=== PATIENT | female | born 1995 | race Caucasian/White ===

== ENCOUNTER 2018-08-25 20:55 | Emergency (ER) | payer SELFPAY ==
[2018-08-25 21:16] VITALS: TEMP 98.8
--- NOTE | 2018-08-25 22:17 | CT ---
EXAM DESCRIPTION: Head CLINICAL HISTORY: 23 years Female fall at [employer] concussion COMPARISON: None TECHNIQUE: Images were obtained in axial, sagittal, and coronal planes. This exam was performed according to our departmental dose-optimization program which includes use of Automated Exposure Control, adjustment of the mA and/or kV according to patient size and/or use of iterative reconstruction technique. FINDINGS: Ventricular system appears normal. No abnormal areas of increased or decreased attenuation are seen involving the brain parenchyma. No extra-axial fluid collections noted. No evidence for skull fracture. Symmetric aeration mastoid air cells bilaterally. Unremarkable paranasal sinuses. IMPRESSION: No acute intracranial abnormality. No evidence for hemorrhage, mass lesion, or large acute infarction. Electronically signed by: Kerry Hylton MD 08/25/2018 10:15 PM CDT
--- NOTE | 2018-08-25 22:18 | RAD ---
EXAM DESCRIPTION: Cervical Spine, 2-3 Views CLINICAL HISTORY: 23 years Female fall at work COMPARISON: None TECHNIQUE: Three images of the cervical spine were obtained. FINDINGS: Height of the vertebral bodies is intact. Satisfactory alignment articular facets. Intact odontoid and predental base. Prevertebral soft tissues appear normal. Artifact left upper hemithorax. IMPRESSION: No acute fracture or subluxation seen. Electronically signed by: Kerry Hylton MD 08/25/2018 10:16 PM CDT
--- NOTE | 2018-08-25 23:12 | RAD ---
EXAM: Three view(s) of the left shoulder. INDICATION: Pain. COMPARISON: None. FINDINGS: No acute fracture or dislocation. No large soft tissue swelling. IMPRESSION: 1. No acute fracture. Electronically signed by: William Soria MD 08/25/2018 11:10 PM CDT Workstation: [id number]
--- NOTE | 2018-08-25 23:15 | ED.PDOC ---
History of Present Illness - General Chief Complaint: Trauma Stated Complaint: head and left shoulder pain Time Seen by Provider: 08/25/18 21:44 Source: patient Exam Limitations: no limitations - History of Present Illness Initial Comments: the patient is a 23-year-old female presenting to the emergency room secondary to having apparently tripped and fallen at work landing on her shoulder and hitting her head. She had some difficulty with getting up. It did days her. She got up and smoked a cigarette she threw up. She is feeling a little dizzy and fatigued at this point. No other obvious injury. Timing/Duration: 1/2 hour Severity: moderate Improving Factors: nothing Worsening Factors: nothing Associated Symptoms: headaches Allergies/Adverse Reactions: Allergies Amoxicillin Allergy (Verified 06/08/18 21:09) Penicillins Allergy (Verified 06/08/18 21:08) Home Medications: Ambulatory Orders Amitriptyline HCl [Amitriptyline Hydrochlori] 10 mg PO DAILY 06/08/18 Review of Systems - Review of Systems Constitutional: States: malaise EENTM: States: no symptoms reported Respiratory: States: no symptoms reported Cardiology: States: no symptoms reported Gastrointestinal/Abdominal: States: nausea Genitourinary: States: no symptoms reported Musculoskeletal: States: see HPI Skin: States: no symptoms reported Neurological: States: headache Endocrine: States: no symptoms reported All other Systems: No Change from Baseline Past Medical History (General) - Patient Medical History Hx Seizures: No Hx Stroke: No Hx Dementia: No Hx Asthma: No Hx of COPD: No Hx Cardiac Disorders: No Hx Congestive Heart Failure: No Hx Pacemaker: No Hx Hypertension: No Hx Thyroid Disease: No Hx Diabetes: No Hx Gastroesophageal Reflux: No Hx Renal Disease: No Hx of HIV: No Hx MRSA: No - Vaccination History Hx Tetanus, Diphtheria Vaccination: No Hx Influenza Vaccination: No Hx Pneumococcal Vaccination: No - Social History Hx Tobacco Use: Yes Hx Alcohol Use: No - Female History Patient is a Female of Child Bearing Age (10 -59 yrs old): Yes Patient : No - Triage Comment ED Triage Comment: Pain to let shoulder and left side of head Family Medical History - Family History Mother Family History: Unknown Physical Exam - Physical Exam General Appearance: Alert, No apparent distress Eye Exam: bilateral normal Ears, Nose, Throat: hearing grossly normal, normal ENT inspection Neck: full range of motion, supple, normal inspection Respiratory: lungs clear, normal breath sounds, no respiratory distress, no accessory muscle use Cardiovascular/Chest: normal peripheral pulses, regular rate, rhythm, no edema Peripheral Pulses: radial,right: 2+, radial,left: 2+, dorsalis pedis,right: 2+, dorsalis pedis,left: 2+ Gastrointestinal/Abdominal: non tender, soft Rectal Exam: deferred Back Exam: no CVA tenderness, no vertebral tenderness Extremity: normal range of motion - point of shoulder is somewhat uncomfortable with palpation. 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 X-ray of the cervical spine and of the shoulder showed no evidence of any fracture, subluxation or dislocation. Progress - Progress Progress: 08/25/18 23:16 the patient's a 23-year-old female presenting to the emergency room after having sustained an injury at work that appears to be a mild concussion and a mild shoulder strain. The patient needs to keep well-hydrated. She needs to avoid overheating. She needs to follow back up with her primary care doctor in a few days. Motrin can be used for headache. ER warnings were given. Departure - Departure Clinical Impression: Strain of left shoulder Qualifiers: Encounter type: initial encounter Qualified Code(s): S46.912A - Strain of unspecified muscle, fascia and tendon at shoulder and upper arm level, left arm, initial encounter Concussion Qualifiers: Encounter type: initial encounter Loss of consciousness presence/duration: without LOC Qualified Code(s): S06.0X0A - Concussion without loss of consciousness, initial encounter Disposition: Discharge to Home or Self Care Condition: Fair Departure Forms: ED Discharge - Pt. Copy, Patient Portal Self Enrollment Instructions: DI for Trauma, Concussion, Adult (DC) Diet: regular diet Activity: increase activity as tolerated Home Medications: Ambulatory Orders Amitriptyline HCl [Amitriptyline Hydrochlori] 10 mg PO DAILY 06/08/18 Additional Instructions: the patient's a 23-year-old female presenting to the emergency room after having sustained an injury at work that appears to be a mild concussion and a mild shoulder strain. The patient needs to keep well-hydrated. She needs to avoid overheating. She needs to follow back up with her primary care doctor in a few days. Motrin can be used for headache. ER warnings were given.
[2018-08-25] MEDS ORDERED: IBUPROFEN 200 MG TAB PO ONE (23:18)
[2018-08-25 23:37] VITALS: BP 125/80; O2SAT 99
== END 2018-08-25 23:41 | disposition home or self-care (01) ==
LOC: ER 20:55
DX: S06.0X0A Concussion without loss of consciousness, initial encounter (principal); S46.912A Strain of unspecified muscle, fascia and tendon at shoulder and upper arm level, left arm, initial encounter; W01.0XXA Fall on same level from slipping, tripping and stumbling without subsequent striking against object, initial encounter; Y99.0 Civilian activity done for income or pay; Y92.69 Other specified industrial and construction area as the place of occurrence of the external cause; Z87.891 Personal history of nicotine dependence; Z88.0 Allergy status to penicillin

== ENCOUNTER 2018-09-24 11:30 | Emergency (ER) | payer SELFPAY ==
[2018-09-24 12:40] VITALS: O2SAT 99
--- NOTE | 2018-09-24 16:32 | ED.PDOC ---
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 Stated Complaint: Vaginal discharge Time Seen by Provider: 09/24/18 13:16 Source: patient Exam Limitations: no limitations - History of Present Illness Quality: moderate Onset Location: suprapubic Radiation: none Activites at Onset: none Prior abdominal problems: none Sexual intercourse history: single partner - Improving Factors: nothing Worsening Factors: nothing Associated Symptoms: denies symptoms Allergies/Adverse Reactions: Allergies Amoxicillin Allergy (Verified 06/08/18 21:09) Penicillins Allergy (Verified 06/08/18 21:08) Home Medications: Ambulatory Orders Amitriptyline HCl [Amitriptyline Hydrochlori] 10 mg PO DAILY 06/08/18 Review of Systems - Review of Systems Constitutional: States: no symptoms reported EENTM: States: no symptoms reported Respiratory: States: no symptoms reported Cardiology: States: no symptoms reported Gastrointestinal/Abdominal: Denies: abdominal pain, nausea Genitourinary: States: discharge, dysuria, other - HESITANCY. Denies: frequency, hematuria Musculoskeletal: States: no symptoms reported Skin: States: no symptoms reported Neurological: States: no symptoms reported Endocrine: States: no symptoms reported Hematologic/Lymphatic: States: no symptoms reported All other Systems: Reviewed and Negative Past Medical History (General) - Patient Medical History Hx Seizures: No Hx Stroke: No Hx Dementia: No Hx Asthma: No Hx of COPD: No Hx Cardiac Disorders: No Hx Congestive Heart Failure: No Hx Pacemaker: No Hx Hypertension: No Hx Thyroid Disease: No Hx Diabetes: No Hx Gastroesophageal Reflux: No Hx Renal Disease: No Hx of HIV: No Hx MRSA: No Surgical History: other - Vaccination History Hx Tetanus, Diphtheria Vaccination: No Hx Influenza Vaccination: No Hx Pneumococcal Vaccination: No - Social History Hx Tobacco Use: Yes Hx Alcohol Use: Yes - Social - Female History Patient is a Female of Child Bearing Age (10 -59 yrs old): Yes Patient : No Family Medical History - Family History Mother Family History: No Known Living Status: Still Living Physical Exam - Physical Exam General Appearance: Alert, No apparent distress Eyes, Ears, Nose, Throat Exam: PERRL/EOMI, normal ENT inspection Neck: non-tender, full range of motion Cardiovascular/Respiratory: regular rate, rhythm, no M/R/G Gastrointestinal/Abdominal: normal bowel sounds, non tender, soft, no organomegaly, no pulsatile mass Pelvic Exam: external exam normal, speculum exam normal - CLEAR TO WHITE, FILMY DC. , no masses, tender w/ cervical motion - WHEN PRESSING TOWARD RIGHT. 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 SEND OUT LABS G/C AND CHLAMYDIA. I SPOKE WITH PT. HER PREFERENCE IS FOR THE ER TO CALL HER WHEN LABS RETURN IN 1-2 DAYS, THEN TX WITH ABX IF INDICATED. Departure - Departure Clinical Impression: Vaginal discharge, Vaginal pain Disposition: Discharge to Home or Self Care Condition: Good Departure Forms: ED Discharge - Pt. Copy, Patient Portal Self Enrollment Instructions: DI for Vaginal Discharge Diet: resume usual diet Activity: increase activity as tolerated Home Medications: Ambulatory Orders Amitriptyline HCl [Amitriptyline Hydrochlori] 10 mg PO DAILY 06/08/18 Additional Instructions: The ER will call you with the lab results and then treat accordingly.
[2018-09-24 16:48] VITALS: BP 112/76; TEMP 98
== END 2018-09-24 16:42 | disposition home or self-care (01) ==
LOC: ER 11:30
DX: N89.8 Other specified noninflammatory disorders of vagina (principal); R10.2 Pelvic and perineal pain; R30.0 Dysuria; R39.11 Hesitancy of micturition; Z87.891 Personal history of nicotine dependence; Z88.0 Allergy status to penicillin

== ENCOUNTER 2019-03-12 18:42 | Emergency (ER) | payer SELFPAY ==
--- NOTE | 2019-03-12 19:19 | ED.PDOC ---
History of Present Illness - General Time Seen by Provider: 03/12/19 18:59 Source: patient, RN notes reviewed, Vital Signs reviewed Exam Limitations: no limitations - History of Present Illness Initial Comments: Pt is a 23 yo femalee with no significant PMH who presents to ED for chest tightness onset at 1630 today. Has felt SOB, nauseated and anxious. Reports palpitations and describes as her heart is beating out of her chest. Denies fever or cough. Denies previous heart problems. Allergies/Adverse Reactions: Allergies Amoxicillin Allergy (Verified 06/08/18 21:09) Penicillins Allergy (Verified 06/08/18 21:08) Home Medications: Ambulatory Orders Amitriptyline HCl [Amitriptyline Hydrochlori] 10 mg PO DAILY 06/08/18 Review of Systems - Review of Systems Constitutional: Denies: chills, fever, weakness EENTM: Denies: ear pain, nose congestion, throat pain Respiratory: States: short of breath. Denies: cough, wheezing Cardiology: States: chest pain, palpitations. Denies: edema, syncope Gastrointestinal/Abdominal: States: nausea. Denies: abdominal pain, vomiting Genitourinary: States: no symptoms reported Musculoskeletal: Denies: back pain, neck pain Skin: States: no symptoms reported Neurological: States: anxiety All other Systems: Reviewed and Negative Past Medical History (General) - Patient Medical History Hx Seizures: No Hx Stroke: No Hx Dementia: No Hx Asthma: No Hx of COPD: No Hx Cardiac Disorders: No Hx Congestive Heart Failure: No Hx Pacemaker: No Hx Hypertension: No Hx Thyroid Disease: No Hx Diabetes: No Hx Gastroesophageal Reflux: No Hx Renal Disease: No Hx of HIV: No Hx MRSA: No - Vaccination History Hx Tetanus, Diphtheria Vaccination: No Hx Influenza Vaccination: No Hx Pneumococcal Vaccination: No - Social History Hx Tobacco Use: Yes Hx Alcohol Use: Yes - Social - Female History Patient : No Family Medical History - Family History Mother Family History: No Known Living Status: Still Living Physical Exam - Physical Exam General Appearance: Alert, Other - Anxious appearing Ears, Nose, Throat: normal pharynx Neck: non-tender, full range of motion, supple Respiratory: chest non-tender, lungs clear, normal breath sounds, no respiratory distress, no accessory muscle use Cardiovascular/Chest: regular rate, rhythm, no edema, no murmur Gastrointestinal/Abdominal: non tender, soft, no pulsatile mass Back Exam: no CVA tenderness, no vertebral tenderness Extremity: normal range of motion, non-tender, normal inspection, no pedal edema 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 EKG, CXR, troponin and D dimer negative. Symptoms resolved with Xanax in ED and feels improved. Likely due to anxiety and pt feels comfortable going home and will f/u with her PCP in 1-2 days for continued evaluation. SRP given. - Results/Orders Results/Orders: CHEST XRAY IMPRESSION: NO SIGNIFICANT RADIOGRAPHIC ABNORMALITIES IN THE CHEST. 03/12/19 19:16 IV:Start .ONCE 03/12/19 19:30 EKG .ONCE Laboratory Results - last 24 hr 03/12/19 03/12/19 03/12/19 19:30 19:32 19:32 WBC 8.0 RBC 4.67 Hgb 10.1 L Hct 32.4 L MCV 69.3 L MCH 21.7 L MCHC 31.3 L RDW 18.5 H Plt Count 283 MPV 9.2 Absolute Neuts (auto) 4.30 Absolute Lymphs (auto) 2.80 Absolute Monos (auto) 0.50 Absolute Eos (auto) 0.40 Absolute Basos (auto) 0.10 Neutrophils % 53.5 Lymphocytes % 34.5 Monocytes % 6.1 Eosinophils % 4.6 Basophils % 1.3 Normal RBC Morphology Stain quality accept D-Dimer, Quantitative Sodium 137 Potassium 3.5 L Chloride 102 Carbon Dioxide 26 Anion Gap 12.5 BUN 8 Creatinine 0.55 L BUN/Creatinine Ratio 14.5 Random Glucose 88 Serum Osmolality 271.6 L Calcium 9.5 Total Bilirubin 0.3 AST 23 ALT 20 Alkaline Phosphatase 69 Troponin I B-Natriuretic Peptide < 5.0 Serum Total Protein 7.9 Albumin 4.4 Globulin 3.5 Albumin/Globulin Ratio 1.3 Lipase 36 Urine HCG, Qual Negative 03/12/19 03/12/19 19:32 19:32 WBC RBC Hgb Hct MCV MCH MCHC RDW Plt Count MPV Absolute Neuts (auto) Absolute Lymphs (auto) Absolute Monos (auto) Absolute Eos (auto) Absolute Basos (auto) Neutrophils % Lymphocytes % Monocytes % Eosinophils % Basophils % Normal RBC Morphology D-Dimer, Quantitative 0.35 Sodium Potassium Chloride Carbon Dioxide Anion Gap BUN Creatinine BUN/Creatinine Ratio Random Glucose Serum Osmolality Calcium Total Bilirubin AST ALT Alkaline Phosphatase Troponin I < 0.02 B-Natriuretic Peptide Serum Total Protein Albumin Globulin Albumin/Globulin Ratio Lipase Urine HCG, Qual Departure - Departure Clinical Impression: Atypical chest pain, Palpitations Disposition: Discharge to Home or Self Care Condition: Good Instructions: DI for Chest Pain Diet: resume usual diet Activity: increase activity as tolerated Home Medications: Ambulatory Orders Amitriptyline HCl [Amitriptyline Hydrochlori] 10 mg PO DAILY 06/08/18 Comments: Follow up with your PCP in 1-2 days for recheck.
[2019-03-12 19:28] VITALS: TEMP 98.3; O2SAT 100
[2019-03-12] MEDS ORDERED: ALPRAZolam 0.5 MG TAB ONE (19:47)
[2019-03-12] MEDS: ALPRAZolam 0.25 MG TAB PO ONE (19:47)
--- NOTE | 2019-03-12 19:55 | RAD ---
EXAM DESCRIPTION: Chest,1 View CLINICAL HISTORY: 23 years Female chest pain COMPARISON: None TECHNIQUE: Portable AP view of the chest is obtained. FINDINGS IN THE CHEST: Heart: Allowing for magnification factors related to AP portable technique and body habitus, the heart is normal in size and configuration. Vasculature: [] There is no evidence of aortic aneurysm or acute findings. The pulmonary vascularity is normal. Mediastinum: No evidence of mass or adenopathy. Lungs: There is no focal consolidation in the lungs. Pleura: There are no pleural effusions. There are no pneumothoraces. Osseous structures: No evidence of acute fracture, osteolytic lesions or osteoblastic lesions. Tubes and catheters: None Chest wall: Unremarkable. Visualized Abdomen: Unremarkable. IMPRESSION: NO SIGNIFICANT RADIOGRAPHIC ABNORMALITIES IN THE CHEST. Remainder of findings as described above. Electronically signed by: Lisy Uribe MD 03/12/2019 7:53 PM MINUTE CLERK
[2019-03-12 20:48] VITALS: BP 128/71
== END 2019-03-12 20:52 | disposition home or self-care (01) ==
LOC: ER 18:42
DX: R07.89 Other chest pain (principal); R00.2 Palpitations; R06.02 Shortness of breath; R11.0 Nausea; F41.9 Anxiety disorder, unspecified; Z88.0 Allergy status to penicillin

== ENCOUNTER → 2019-04-01 | Outpatient (CLI) | payer OTHER | LOC: LAB.O 13:21 | PROVIDERS: ATTEND Family Medicine | DX: D64.9 Anemia, unspecified (principal) ==

== ENCOUNTER 2019-08-10 14:54 | Emergency (ER) | payer SELFPAY ==
[2019-08-10] MEDS ORDERED: SODIUM CHLORIDE 0.9% (FLUSH) 10 ML SYG IV PRN (15:08)
[2019-08-10] MEDS ORDERED: ONDANSETRON INJ 4 MG/2 ML VIAL IV ONE (15:08)
[2019-08-10] MEDS ORDERED: DICYCLOMINE HCL INJ 20 MG/2 ML AMP IM ONE (15:09)
--- NOTE | 2019-08-10 17:33 | ED.PDOC ---
History of Present Illness - General Chief Complaint: GI Problem Stated Complaint: Lower abd pain, N/V Time Seen by Provider: 08/10/19 15:08 Information Source: patient, RN notes reviewed, Vital Signs reviewed Exam Limitations: no limitations - History of Present Illness Initial Comments: Patient is a 24-year-old white female who presents with complaints of suprapubic abdominal pain starting 1 hour prior to arrival. Acute onset, stabbing in nature, severe intensity, nonradiating. Nothing makes it better or worse. It is constant. Abdominal Pain Onset Location: suprapubic Pain Radiation: no radiation Quality: severe, stabbing Timing/Duration: 1 hour Improving Factors: nothing Worsening Factors: nothing Associated Symptoms: nausea/vomiting - Nausea only Review of Systems - Review of Systems Constitutional: States: no symptoms reported, see HPI EENTM: States: no symptoms reported, see HPI Respiratory: States: no symptoms reported Cardiology: States: no symptoms reported Gastrointestinal/Abdominal: States: see HPI, abdominal pain, nausea. Denies: constipation, diarrhea, vomiting Genitourinary: Denies: discharge, dysuria, frequency, pain Musculoskeletal: States: no symptoms reported. 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 Hx Congestive Heart Failure: No Hx Pacemaker: No Hx Hypertension: No Hx Thyroid Disease: No Hx Diabetes: No Hx Gastroesophageal Reflux: No Hx Renal Disease: No Hx Cancer: No Hx of HIV: No Hx Hepatitis C: No Hx MRSA: No Surgical History: other - Vaccination History Hx Tetanus, Diphtheria Vaccination: No Hx Influenza Vaccination: No Hx Pneumococcal Vaccination: No - Social History Hx Tobacco Use: Yes Hx Alcohol Use: No Hx Substance Use: No Hx Substance Use Treatment: No Hx Depression: No - Female History Patient is a Female of Child Bearing Age (10 -59 yrs old): Yes Patient : No - Denies Family Medical History - Family History Mother Family History: No Known Living Status: Still Living Physical Exam - Physical Exam General Appearance: Alert, Anxious, Obvious distress, Well Developed, Well Groomed, Well Hydrated, Well Nourished Eyes, Ears, Nose, Throat Exam: PERRL/EOMI, normal ENT inspection, pharynx normal - Except for dry mucous membrane Neck: non-tender, full range of motion, supple Respiratory: chest non-tender, lungs clear, normal breath sounds, no respiratory distress, no accessory muscle use Cardiovascular/Chest: normal peripheral pulses, no edema, no gallop, no murmur, tachycardia Gastrointestinal/Abdominal: normal bowel sounds, soft, no organomegaly, no pulsatile mass, tenderness - Suprapubically Pelvic Exam: other - Deferred at patient request Rectal Exam: deferred Back Exam: normal inspection, no CVA tenderness, no vertebral tenderness Extremity: normal range of motion, non-tender, normal inspection 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 08/10/19 17:48 Patient's pain went from a 10/10 to a 2/10 after IM Bentyl. Patient is feeling markedly better. Plan on discharge home at this point in time. Patient did query me regarding possible ovarian cyst. We did discuss this and I explained I do not have ultrasound available on the weekends but that she could follow-up with her PCP in the morning and they could order an outpatient ultrasound. She voiced understanding and agreement with the plan of care. Jeronimo Florez M.D. #[id number] - Results/Orders Results/Orders: Laboratory Tests 08/10/19 08/10/19 08/10/19 15:40 15:40 15:40 WBC 7.6 RBC 4.58 Hgb 9.8 L Hct 31.8 L MCV 69.3 L MCH 21.5 L MCHC 31.0 L RDW 17.7 H Plt Count 253 MPV 8.4 Absolute Neuts (auto) 4.10 Absolute Lymphs (auto) 2.60 Absolute Monos (auto) 0.50 Absolute Eos (auto) 0.40 Absolute Basos (auto) 0.10 Neutrophils % 54.2 Lymphocytes % 33.6 Monocytes % 5.9 Eosinophils % 5.0 Basophils % 1.3 RBC Morphology 2+poikilocytosis Sodium 138 Potassium 3.2 L Chloride 108 Carbon Dioxide 24 Anion Gap 9.2 L BUN 9 Creatinine 0.67 BUN/Creatinine Ratio 13.4 Random Glucose 76 Serum Osmolality 273.1 L Calcium 9.4 Total Bilirubin 0.3 Direct Bilirubin < 0.1 Indirect Bilirubin 0.2 AST 22 ALT 19 Alkaline Phosphatase 58 Serum Total Protein 7.7 Albumin 4.1 Lipase 33 Serum HCG, Qual Negative Urine Color Urine Appearance Urine pH Ur Specific Umbarger Urine Protein Urine Glucose (UA) Urine Ketones Urine Blood Urine Nitrite Urine Bilirubin Urine Urobilinogen Ur Leukocyte Esterase Urine RBC Urine WBC Ur Epithelial Cells Urine Bacteria 08/10/19 15:47 WBC RBC Hgb Hct MCV MCH MCHC RDW Plt Count MPV Absolute Neuts (auto) Absolute Lymphs (auto) Absolute Monos (auto) Absolute Eos (auto) Absolute Basos (auto) Neutrophils % Lymphocytes % Monocytes % Eosinophils % Basophils % RBC Morphology Sodium Potassium Chloride Carbon Dioxide Anion Gap BUN Creatinine BUN/Creatinine Ratio Random Glucose Serum Osmolality Calcium Total Bilirubin Direct Bilirubin Indirect Bilirubin AST ALT Alkaline Phosphatase Serum Total Protein Albumin Lipase Serum HCG, Qual Urine Color Yellow Urine Appearance Clear Urine pH 7.0 Ur Specific Umbarger 1.020 Urine Protein Negative Urine Glucose (UA) Negative Urine Ketones Negative Urine Blood Negative Urine Nitrite Negative Urine Bilirubin Negative Urine Urobilinogen 0.2 Ur Leukocyte Esterase Negative Urine RBC 0 Urine WBC 0 Ur Epithelial Cells 0 Urine Bacteria 0 Vital Signs 08/10/19 08/10/19 15:04 15:26 Temperature 100 F H Pulse Rate [ 111 H 111 H Pulse ox] Respiratory 20 20 Rate Blood Pressure 145/78 [L brachial] O2 Sat by Pulse 100 Oximetry Departure - Departure Clinical Impression: Painful bladder spasm Abdominal pain Qualifiers: Abdominal location: lower abdomen, unspecified Qualified Code(s): R10.30 - Lower abdominal pain, unspecified Time of Disposition: 17:50 Disposition: Discharge to Home or Self Care Condition: Good Departure Forms: ED Discharge - Pt. Copy, Patient Portal Self Enrollment Instructions: DI for Abdominal Pain-Adult, Bladder Spasms (DC) Diet: resume usual diet Activity: increase activity as tolerated Prescriptions: Dicyclomine HCl [Bentyl] 20 mg PO Q6H #12 tab Home Medications: Ambulatory Orders Amitriptyline HCl [Amitriptyline Hydrochlori] 10 mg PO DAILY 06/08/18 Dicyclomine HCl [Bentyl] 20 mg PO Q6H #12 tab 08/10/19
[2019-08-10 18:22] VITALS: BP 107/62; TEMP 98.3; O2SAT 94
== END 2019-08-10 18:00 | disposition home or self-care (01) ==
LOC: ER 14:54
DX: N32.89 Other specified disorders of bladder (principal); R10.30 Lower abdominal pain, unspecified; R11.2 Nausea with vomiting, unspecified; F17.200 Nicotine dependence, unspecified, uncomplicated
CPT/HCPCS: 36415; 80048; 80076; 81001; 83690; 84703; 85025; A4216; J0500; J2405

== ENCOUNTER 2019-08-29 16:13 | Emergency (ER) | payer SELFPAY ==
[2019-08-29] MEDS ORDERED: SULFA/TRIMETH 800/160 (DS) TAB 1 EA TAB PO ONE (16:28)
--- NOTE | 2019-08-29 16:31 | ED.PDOC ---
History of Present Illness - General Chief Complaint: Bite: Animal/Insect/Human Stated Complaint: Spider bite L index finger Time Seen by Provider: 08/29/19 16:28 Source: patient Exam Limitations: no limitations - History of Present Illness Initial Comments: The patient is a 24-year-old female presented emergency room secondary to a small area of cellulitis over the first interphalangeal joint of the index finger of the left hand. It is been present for about 10 days. There is mild surrounding erythema. No evidence of extension into the joint. She thinks it may be from a spider bite but is not sure. No fever. No other areas of concern. No drainage. Timing/Duration: other - 10 days Severity: mild Improving Factors: nothing Worsening Factors: nothing Associated Symptoms: denies symptoms Allergies/Adverse Reactions: Allergies Amoxicillin Allergy (Verified 08/10/19 15:33) Coconut Fragrance Allergy (Verified 08/10/19 15:33) Penicillins Allergy (Verified 08/10/19 15:33) Home Medications: Ambulatory Orders Amitriptyline HCl [Amitriptyline Hydrochlori] 10 mg PO DAILY 06/08/18 Dicyclomine HCl [Bentyl] 20 mg PO Q6H #12 tab 08/10/19 Sulfa/Trimeth 800/160 (Ds) Tab [Bactrim DS Tab] 1 ea PO BID #10 tab 08/29/19 Review of Systems - Review of Systems Constitutional: States: no symptoms reported EENTM: States: no symptoms reported Respiratory: States: no symptoms reported Cardiology: States: no symptoms reported Gastrointestinal/Abdominal: States: no symptoms reported Genitourinary: States: no symptoms reported Musculoskeletal: States: no symptoms reported Skin: States: see HPI Neurological: States: no symptoms reported Endocrine: States: no symptoms reported All other Systems: No Change from Baseline Past Medical History (General) - Patient Medical History Hx Seizures: No Hx Stroke: No Hx Dementia: No Hx Asthma: No Hx of COPD: No 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 Hx Congestive Heart Failure: No Hx Pacemaker: No Hx Hypertension: No Hx Thyroid Disease: No Hx Diabetes: No Hx Gastroesophageal Reflux: No Hx Renal Disease: No Hx Cancer: No Hx of HIV: No Hx Hepatitis C: No Hx MRSA: No - Vaccination History Hx Tetanus, Diphtheria Vaccination: No Hx Influenza Vaccination: No Hx Pneumococcal Vaccination: No - Social History Hx Tobacco Use: Yes Hx Alcohol Use: No Hx Substance Use: No Hx Substance Use Treatment: No Hx Depression: No - Female History Patient : No - Denies Family Medical History - Family History Mother Family History: No Known Living Status: Still Living Physical Exam - Physical Exam General Appearance: Alert, Comfortable, No apparent distress Eye Exam: bilateral normal Ears, Nose, Throat: hearing grossly normal Neck: full range of motion Respiratory: no respiratory distress, no accessory muscle use Cardiovascular/Chest: normal peripheral pulses, no edema Peripheral Pulses: radial,right: 2+, radial,left: 2+ Rectal Exam: deferred Extremity: normal range of motion, no pedal edema, normal capillary refill, other - Normal range of motion of the finger 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 No drainage. No abscess. Progress - Progress Progress: 08/29/19 16:30 The patient is a 24-year-old female with a small area of cellulitis to the palmar aspect of the first interphalangeal joint of the second digit of the left hand. The patient is going to be started on Bactrim twice daily for 5 days. She is to use both Neosporin and a Band-Aid to keep the area covered and moist. ER warnings are given for any worsening. First dose of Bactrim was given here. hernan burks [id number] Departure - Departure Clinical Impression: Cellulitis Qualifiers: Site of cellulitis: extremity Site of cellulitis of extremity: finger Laterality: left Qualified Code(s): L03.012 - Cellulitis of left finger Disposition: Discharge to Home or Self Care Condition: Fair Departure Forms: ED Discharge - Pt. Copy, Patient Portal Self Enrollment Instructions: Cellulitis (Skin Infection), Adult (DC) Diet: regular diet Activity: increase activity as tolerated Prescriptions: Sulfa/Trimeth 800/160 (Ds) Tab [Bactrim DS Tab] 1 ea PO BID #10 tab Home Medications: Ambulatory Orders Amitriptyline HCl [Amitriptyline Hydrochlori] 10 mg PO DAILY 06/08/18 Dicyclomine HCl [Bentyl] 20 mg PO Q6H #12 tab 08/10/19 Sulfa/Trimeth 800/160 (Ds) Tab [Bactrim DS Tab] 1 ea PO BID #10 tab 08/29/19 Additional Instructions: The patient is a 24-year-old female with a small area of cellulitis to the palmar aspect of the first interphalangeal joint of the second digit of the left hand. The patient is going to be started on Bactrim twice daily for 5 days. She is to use both Neosporin and a Band-Aid to keep the area covered and moist. ER warnings are given for any worsening. First dose of Bactrim was given here.
[2019-08-29 16:34] VITALS: BP 133/86; TEMP 98.4; O2SAT 100
== END 2019-08-29 16:40 | disposition home or self-care (01) ==
LOC: ER 16:13
DX: L03.012 Cellulitis of left finger (principal); F17.200 Nicotine dependence, unspecified, uncomplicated

== ENCOUNTER 2019-08-30 18:20 | Emergency (ER) | payer SELFPAY ==
--- NOTE | 2019-08-30 18:37 | ED.PDOC ---
History of Present Illness - General Time Seen by Provider: 08/30/19 18:33 Source: patient Additional Information: Is a 24-year-old female, patient works at a gas [employer] patient presents to the ER because of not feeling well, was seen here yesterday seems like she probably had a what she thought was a spider bite on her finger, she was given antibiotics but since last night she started having some chills this is a general feel warm no fever and very weak. Patient denies coughing denies nasal secretions denies abdominal pain denies dysuria no diarrhea Patient is a smoker - History of Present Illness Timing/Duration: other - last night Improving Factors: nothing Worsening Factors: nothing Associated Symptoms: denies symptoms Allergies/Adverse Reactions: Allergies Coconut Fragrance Allergy (Verified 08/10/19 15:33) Iron Allergy (Verified 08/29/19 16:34) Amoxicillin Adverse Reaction (Verified 08/29/19 16:34) Penicillins Adverse Reaction (Verified 08/29/19 16:34) Home Medications: Ambulatory Orders Amitriptyline HCl [Amitriptyline Hydrochlori] 10 mg PO DAILY 06/08/18 Dicyclomine HCl [Bentyl] 20 mg PO Q6H #12 tab 08/10/19 Sulfa/Trimeth 800/160 (Ds) Tab [Bactrim DS Tab] 1 ea PO BID #10 tab 08/29/19 Review of Systems - Review of Systems Constitutional: States: chills, malaise EENTM: States: no symptoms reported Respiratory: States: no symptoms reported Cardiology: States: no symptoms reported Gastrointestinal/Abdominal: States: no symptoms reported Genitourinary: States: no symptoms reported Musculoskeletal: States: no symptoms reported Skin: States: no symptoms reported Neurological: States: no symptoms reported Endocrine: States: no symptoms reported Hematologic/Lymphatic: States: no symptoms reported All other Systems: Reviewed and Negative Past Medical History (General) - Patient Medical History Hx Seizures: No Hx Stroke: No Hx Dementia: No Hx Asthma: No Hx of COPD: No 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 Hx Congestive Heart Failure: No Hx Pacemaker: No Hx Hypertension: No Hx Thyroid Disease: No Hx Diabetes: No Hx Gastroesophageal Reflux: No Hx Renal Disease: No Hx Cancer: No Hx of HIV: No Hx Hepatitis C: No Hx MRSA: No - Vaccination History Hx Tetanus, Diphtheria Vaccination: No Hx Influenza Vaccination: No Hx Pneumococcal Vaccination: No - Social History Hx Tobacco Use: Yes Hx Alcohol Use: No Hx Substance Use: No Hx Substance Use Treatment: No Hx Depression: No - Female History Patient : No - Denies Family Medical History - Family History Mother Family History: No Known Living Status: Still Living Hx Family Diabetes: Yes Father Living Status: Still Living Hx Family Diabetes: Yes Physical Exam - Physical Exam General Appearance: Alert, Well Developed, Well Groomed, Well Hydrated, Well Nourished Eye Exam: bilateral normal Ears, Nose, Throat: hearing grossly normal, normal ENT inspection, normal pharynx Neck: non-tender, full range of motion, supple, normal inspection Cardiovascular/Chest: normal peripheral pulses, regular rate, rhythm, no edema, no gallop, no JVD Gastrointestinal/Abdominal: normal bowel sounds, non tender, soft, no organomegaly Rectal Exam: normal exam Back Exam: normal inspection, no CVA tenderness, no vertebral tenderness Extremity: normal range of motion, non-tender, normal inspection, no pedal edema, no calf tenderness 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 Patient return home with a note for work I will order the covid test, told the patient to stay home the test will not be available today and lots of fluids lots of rest and Tylenol 3 for achiness and malaise Departure - Departure Clinical Impression: Malaise and fatigue Disposition: Discharge to Home or Self Care Condition: Good Diet: full liquid diet Home Medications: Ambulatory Orders Amitriptyline HCl [Amitriptyline Hydrochlori] 10 mg PO DAILY 06/08/18 Dicyclomine HCl [Bentyl] 20 mg PO Q6H #12 tab 08/10/19 Sulfa/Trimeth 800/160 (Ds) Tab [Bactrim DS Tab] 1 ea PO BID #10 tab 08/29/19
[2019-08-30 18:41] VITALS: BP 125/68; TEMP 97.8; O2SAT 99
== END 2019-08-30 18:53 | disposition home or self-care (01) ==
LOC: ER 18:20
DX: R53.81 Other malaise (principal); R53.83 Other fatigue

== ENCOUNTER 2019-09-06 12:39 | Emergency (ER) | payer SELFPAY ==
[2019-09-06] MEDS ORDERED: SODIUM CHLORIDE 0.9% 1000ML 1,000 ML IVS ONE (12:53)
--- NOTE | 2019-09-06 12:56 | ED.PDOC ---
History of Present Illness - General Time Seen by Provider: 09/06/19 12:44 Source: patient, RN notes reviewed, Vital Signs reviewed, old records Exam Limitations: no limitations - History of Present Illness Initial Comments: Patient is a 24-year-old female with no past medical history who presents the ED with 8-day history of cough, shortness of breath, body aches and feeling fatigued. She was seen in ED 1 week ago and tested for COVID-19, but she has not gotten the results. States over the past week her symptoms have not improved so she returned to ED today. Had one episode of diarrhea this morning. She denies fever, nausea, vomiting or abdominal pain or dysuria. Allergies/Adverse Reactions: Allergies Coconut Fragrance Allergy (Verified 08/30/19 18:37) Iron Allergy (Verified 08/30/19 18:37) Amoxicillin Adverse Reaction (Verified 08/30/19 18:37) Penicillins Adverse Reaction (Verified 08/30/19 18:37) Home Medications: Ambulatory Orders Amitriptyline HCl [Amitriptyline Hydrochlori] 10 mg PO DAILY 06/08/18 Dicyclomine HCl [Bentyl] 20 mg PO Q6H #12 tab 08/10/19 Sulfa/Trimeth 800/160 (Ds) Tab [Bactrim DS Tab] 1 ea PO BID #10 tab 08/29/19 Acetaminophen W/ Codeine [Tylenol W/ CODEINE #3] 1 ea PO Q6HR #20 08/30/19 Review of Systems - Review of Systems Constitutional: States: malaise. Denies: chills, fever EENTM: States: nose congestion. Denies: blurred vision, throat swelling Respiratory: States: cough, short of breath. Denies: wheezing Cardiology: Denies: chest pain, edema, syncope Gastrointestinal/Abdominal: States: diarrhea. Denies: abdominal pain, nausea, vomiting Genitourinary: Denies: dysuria, frequency, hematuria Musculoskeletal: States: other - bodyaches. 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 Hx Congestive Heart Failure: No Hx Pacemaker: No Hx Hypertension: No Hx Thyroid Disease: No Hx Diabetes: No Hx Gastroesophageal Reflux: No Hx Renal Disease: No Hx Cancer: No Hx of HIV: No Hx Hepatitis C: No Hx MRSA: No - Vaccination History Hx Tetanus, Diphtheria Vaccination: No Hx Influenza Vaccination: No Hx Pneumococcal Vaccination: No - Social History Hx Tobacco Use: Yes Hx Alcohol Use: No Hx Substance Use: No Hx Substance Use Treatment: No Hx Depression: No - Female History Patient : No - Denies Family Medical History - Family History Mother Family History: No Known Living Status: Still Living Hx Family Diabetes: Yes Father Living Status: Still Living Hx Family Diabetes: Yes Physical Exam - Physical Exam General Appearance: Alert, Comfortable, No apparent distress, Other - Nontoxic appearing Neck: non-tender, full range of motion, supple Respiratory: chest non-tender, lungs clear, normal breath sounds, no respiratory distress, other - Good air movement. No wheezes. Speaks in full sentences Cardiovascular/Chest: regular rate, rhythm, no edema, no murmur Gastrointestinal/Abdominal: non tender, soft, no pulsatile mass Back Exam: no CVA tenderness, no vertebral tenderness Extremity: non-tender, normal inspection, no calf tenderness Neurologic: no motor/sensory deficits, alert, normal mood/affect Skin Exam: normal color Progress - Progress Progress: 09/06/19 13:00 Differential diagnosis includes but is not limited to COVID-19, sepsis, dehydration, pneumonia, bronchitis, viral syndrome, UTI 09/06/19 14:10 Patient presents the ED with 1 week history of body aches cough and feeling short of breath. She is nontoxic-appearing in no respiratory distress and O2 sat has been 100% on room air. Labs and vital signs are reassuring. Her COVID- 19 test from last week is still pending. I have again recommended she self quarantine, rest, drink plenty of fluids and take Tylenol as needed for pain or fever. I advised her to follow-up with her primary care doctor in 1 to 2 days for continued evaluation. Strict return precautions given. - Results/Orders Results/Orders: Chest x-ray No acute pulmonary findings. No change in aeration from prior study Laboratory Results - last 24 hr 09/06/19 09/06/19 09/06/19 13:17 13:17 13:17 WBC 7.2 RBC 4.47 Hgb 9.5 L Hct 30.8 L MCV 68.9 L MCH 21.3 L MCHC 30.9 L RDW 18.6 H Plt Count 254 MPV 8.9 Absolute Neuts (auto) 4.20 Absolute Lymphs (auto) 2.10 Absolute Monos (auto) 0.50 Absolute Eos (auto) 0.30 Absolute Basos (auto) 0.10 Neutrophils % 58.6 Lymphocytes % 29.5 Monocytes % 6.5 Eosinophils % 4.6 Basophils % 0.8 Sodium 137 Potassium 3.4 L Chloride 107 Carbon Dioxide 21 Anion Gap 12.4 BUN < 5 L Creatinine 0.53 L BUN/Creatinine Ratio 9.4 L Random Glucose 81 Serum Osmolality 270.1 L Calcium 9.1 Total Bilirubin 0.4 AST 33 ALT 31 Alkaline Phosphatase 62 Serum Total Protein 7.1 Albumin 4.0 Globulin 3.1 Albumin/Globulin Ratio 1.3 Serum HCG, Qual Negative Urine Color Urine Appearance Urine pH Ur Specific Crosby Urine Protein Urine Glucose (UA) Urine Ketones Urine Blood Urine Nitrite Urine Bilirubin Urine Urobilinogen Ur Leukocyte Esterase Urine RBC Urine WBC Ur Epithelial Cells Urine Bacteria 09/06/19 13:31 WBC RBC Hgb Hct MCV MCH MCHC RDW Plt Count MPV Absolute Neuts (auto) Absolute Lymphs (auto) Absolute Monos (auto) Absolute Eos (auto) Absolute Basos (auto) Neutrophils % Lymphocytes % Monocytes % Eosinophils % Basophils % Sodium Potassium Chloride Carbon Dioxide Anion Gap BUN Creatinine BUN/Creatinine Ratio Random Glucose Serum Osmolality Calcium Total Bilirubin AST ALT Alkaline Phosphatase Serum Total Protein Albumin Globulin Albumin/Globulin Ratio Serum HCG, Qual Urine Color Yellow Urine Appearance Clear Urine pH 8.5 H Ur Specific Crosby 1.015 Urine Protein Negative Urine Glucose (UA) Negative Urine Ketones Negative Urine Blood Negative Urine Nitrite Negative Urine Bilirubin Negative Urine Urobilinogen 0.2 Ur Leukocyte Esterase Negative Urine RBC 0 Urine WBC 0 Ur Epithelial Cells 1-3 Urine Bacteria 0 Departure - Departure Clinical Impression: Malaise and fatigue, Viral syndrome Time of Disposition: 14:09 Disposition: Discharge to Home or Self Care Condition: Fair Instructions: Viral Syndrome (DC) Diet: resume usual diet Activity: increase activity as tolerated Home Medications: Ambulatory Orders Amitriptyline HCl [Amitriptyline Hydrochlori] 10 mg PO DAILY 06/08/18 Dicyclomine HCl [Bentyl] 20 mg PO Q6H #12 tab 08/10/19 Sulfa/Trimeth 800/160 (Ds) Tab [Bactrim DS Tab] 1 ea PO BID #10 tab 08/29/19 Acetaminophen W/ Codeine [Tylenol W/ CODEINE #3] 1 ea PO Q6HR #20 08/30/19 Additional Instructions: Follow up with a PCP for recheck in 1-2 days. You will need to call medical records for results of your COVID 19 test from last week.
--- NOTE | 2019-09-06 13:08 | RAD ---
EXAMINATION: Chest x-ray one view. INDICATION: Shortness of breath. COMPARISON: March 12, 2019. TECHNIQUE: Frontal radiograph chest. FINDINGS: The cardiac silhouette is normal in size. No focal consolidative process or pulmonary edema. There is no pneumothorax. IMPRESSION: No acute pulmonary findings. No change in aeration from prior study. Electronically signed by: Thalia Man MD 09/06/2019 1:07 PM CDT
[2019-09-06 13:56] VITALS: TEMP 98.8
[2019-09-06 14:58] VITALS: BP 120/73; O2SAT 97
== END 2019-09-06 14:40 | disposition home or self-care (01) ==
LOC: ER 12:39
DX: R53.83 Other fatigue (principal); B34.9 Viral infection, unspecified; R19.7 Diarrhea, unspecified; F17.200 Nicotine dependence, unspecified, uncomplicated; R05 Cough
CPT/HCPCS: 36415; 71045; 80053; 81001; 84703; 85025; J7030

== ENCOUNTER 2019-09-22 11:38 | Emergency (ER) | payer SELFPAY ==
[2019-09-22] MEDS ORDERED: ONDANSETRON ODT 8 MG TAB SL ONE (11:54)
[2019-09-22] MEDS ORDERED: SODIUM CHLORIDE 0.9% 1000ML 1,000 ML IVS ONE (11:54)
[2019-09-22] MEDS ORDERED: PANTOPRAZOLE SODIUM IV 40 MG VIAL IV ONE (11:54)
[2019-09-22] MEDS ORDERED: ALUM & MAG HYDROX-SIMETHICONE 30 ML, LIDOCAINE VISCOUS 2% 15 ML PO ONE ×2 (11:54)
[2019-09-22 12:48] VITALS: TEMP 97.6; O2SAT 98
--- NOTE | 2019-09-22 13:42 | ED.PDOC ---
History of Present Illness - General Chief Complaint: Abdominal Pain Stated Complaint: abdominal pain Time Seen by Provider: 09/22/19 11:44 Source: patient Exam Limitations: no limitations - History of Present Illness Initial Comments: The patient is a 24-year-old female presented emergency room secondary to 3 days of nausea vomiting with intermittent diarrhea. No fever. No shortness of breath. No rash. No syncope or near syncope. No chest pain. The patient does have a history of having very mild and prolonged vomiting when she gets a gastroenteritis. The patient apparently had a Steven fundoplication around 4 months. No blood in the vomitus. No blood in the stool. Timing/Duration: other - 3 days Severity: moderate Improving Factors: nothing Worsening Factors: eating Associated Symptoms: loss of appetite, malaise, nausea/vomiting Allergies/Adverse Reactions: Allergies Coconut Fragrance Allergy (Verified 08/30/19 18:37) Iron Allergy (Verified 08/30/19 18:37) Amoxicillin Adverse Reaction (Verified 08/30/19 18:37) Penicillins Adverse Reaction (Verified 08/30/19 18:37) Home Medications: Ambulatory Orders Famotidine 20 mg PO DAILY #30 tab 09/22/19 Ondansetron Odt [Zofran ODT] 4 mg PO Q8HR PRN #10 tab 09/22/19 Sucralfate Tab [Carafate Tab] 1 gm PO QID #120 tab 09/22/19 Review of Systems - Review of Systems Constitutional: States: malaise EENTM: States: no symptoms reported Respiratory: States: no symptoms reported Cardiology: States: no symptoms reported Gastrointestinal/Abdominal: States: diarrhea, nausea, vomiting Genitourinary: States: no symptoms reported Musculoskeletal: States: no symptoms reported Skin: States: no symptoms reported Neurological: States: no symptoms reported Endocrine: States: no symptoms reported All other Systems: No Change from Baseline Past Medical History (General) - Patient Medical History Hx Seizures: No Hx Stroke: No Hx Dementia: No Hx Asthma: No Hx of COPD: No 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 Hx Congestive Heart Failure: No Hx Pacemaker: No Hx Hypertension: No Hx Thyroid Disease: No Hx Diabetes: No Hx Gastroesophageal Reflux: No - steven fundiplication Hx Renal Disease: No Hx Cancer: No Hx of HIV: No Hx Hepatitis C: No Hx MRSA: No Surgical History: other - Vaccination History Hx Tetanus, Diphtheria Vaccination: No Hx Influenza Vaccination: No Hx Pneumococcal Vaccination: No - Social History Hx Tobacco Use: Yes Hx Alcohol Use: No Hx Substance Use: No Hx Substance Use Treatment: No Hx Depression: No - Female History Patient : No - Denies Family Medical History - Family History Mother Family History: No Known Living Status: Still Living Hx Family Diabetes: Yes Father Living Status: Still Living Hx Family Diabetes: Yes Physical Exam - Physical Exam General Appearance: Alert, Comfortable, No apparent distress Eye Exam: bilateral normal Ears, Nose, Throat: hearing grossly normal, normal ENT inspection Neck: full range of motion, supple Respiratory: lungs clear, normal breath sounds, no respiratory distress, no accessory muscle use Cardiovascular/Chest: normal peripheral pulses, regular rate, rhythm, no edema Peripheral Pulses: radial,right: 2+, radial,left: 2+ Gastrointestinal/Abdominal: soft, other - Mild epigastric discomfort to palpation. No rebound or peritoneal signs. 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 The patient has received a liter of IV fluids as well as nausea and acid reducing medications. The patient is going to be placed on 1 month of famotidine and Carafate to help with a gastritis issue and she will be written for Zofran to control any nausea and vomiting. She is to maintain a bland diet for the next week. Keep well-hydrated. Follow-up with primary care doctor later this week or early next week. Laboratory work is reassuring. ER warnings are given. hernan burks [phone] - Results/Orders Results/Orders: Laboratory Tests 09/22/19 09/22/19 09/22/19 12:25 12:25 12:25 WBC 6.5 RBC 4.65 Hgb 10.0 L Hct 32.3 L MCV 69.6 L MCH 21.6 L MCHC 31.0 L RDW 18.5 H Plt Count 262 MPV 8.7 Absolute Neuts (auto) 3.70 Absolute Lymphs (auto) 1.80 Absolute Monos (auto) 0.40 Absolute Eos (auto) 0.40 Absolute Basos (auto) 0.10 Neutrophils % 56.5 Lymphocytes % 28.3 Monocytes % 6.9 Eosinophils % 6.8 H Basophils % 1.5 Sodium 138 Potassium 3.8 Chloride 106 Carbon Dioxide 24 Anion Gap 11.8 L BUN 8 Creatinine 0.47 L BUN/Creatinine Ratio 17.0 Random Glucose 95 Serum Osmolality 273.8 L Calcium 9.0 Magnesium 1.8 Total Bilirubin 0.3 AST 19 ALT 18 Alkaline Phosphatase 58 Creatine Kinase 53 CK-MB (CK-2) 0.8 CK-MB (CK-2) % Not Reportable Troponin I < 0.02 Serum Total Protein 7.7 Albumin 4.0 Globulin 3.7 H Albumin/Globulin Ratio 1.1 Amylase 62 Lipase 34 TSH 1.66 Serum HCG, Qual Negative Urine Color Urine Appearance Urine pH Ur Specific [place] Urine Protein Urine Glucose (UA) Urine Ketones Urine Blood Urine Nitrite Urine Bilirubin Urine Urobilinogen Ur Leukocyte Esterase Urine RBC Urine WBC Ur Epithelial Cells Amorphous Sediment Urine Bacteria Urine Mucus 09/22/19 12:40 WBC RBC Hgb Hct MCV MCH MCHC RDW Plt Count MPV Absolute Neuts (auto) Absolute Lymphs (auto) Absolute Monos (auto) Absolute Eos (auto) Absolute Basos (auto) Neutrophils % Lymphocytes % Monocytes % Eosinophils % Basophils % Sodium Potassium Chloride Carbon Dioxide Anion Gap BUN Creatinine BUN/Creatinine Ratio Random Glucose Serum Osmolality Calcium Magnesium Total Bilirubin AST ALT Alkaline Phosphatase Creatine Kinase CK-MB (CK-2) CK-MB (CK-2) % Troponin I Serum Total Protein Albumin Globulin Albumin/Globulin Ratio Amylase Lipase TSH Serum HCG, Qual Urine Color Yellow Urine Appearance Cloudy Urine pH 7.0 Ur Specific [place] 1.020 Urine Protein Negative Urine Glucose (UA) Negative Urine Ketones Negative Urine Blood Moderate H Urine Nitrite Negative Urine Bilirubin Negative Urine Urobilinogen 0.2 Ur Leukocyte Esterase Negative Urine RBC 0-1 Urine WBC 0-1 Ur Epithelial Cells 0-1 Amorphous Sediment 3+ Urine Bacteria Rare Urine Mucus Trace Departure - Departure Clinical Impression: Gastroenteritis Disposition: Discharge to Home or Self Care Condition: Fair Departure Forms: ED Discharge - Pt. Copy, Patient Portal Self Enrollment Instructions: Viral Gastroenteritis, Adult (DC) Diet: bland diet Activity: increase activity as tolerated Prescriptions: Ondansetron Odt [Zofran ODT] 4 mg PO Q8HR PRN #10 tab PRN Reason: Nausea--Moderate Famotidine 20 mg PO DAILY #30 tab Sucralfate Tab [Carafate Tab] 1 gm PO QID #120 tab Home Medications: Ambulatory Orders Famotidine 20 mg PO DAILY #30 tab 09/22/19 Ondansetron Odt [Zofran ODT] 4 mg PO Q8HR PRN #10 tab 09/22/19 Sucralfate Tab [Carafate Tab] 1 gm PO QID #120 tab 09/22/19 Additional Instructions: The patient is a 24-year-old female presented emergency room with what appears to be an acute gastroenteritis. The patient has received a liter of IV fluids as well as nausea and acid reducing medications. The patient is going to be placed on 1 month of famotidine and Carafate to help with a gastritis issue and she will be written for Zofran to control any nausea and vomiting. She is to maintain a bland diet for the next week. Keep well-hydrated. Follow-up with primary care doctor later this week or early next week. Laboratory work is reassuring. ER warnings are given.
[2019-09-22 13:52] VITALS: BP 120/75
== END 2019-09-22 13:52 | disposition home or self-care (01) ==
LOC: ER 11:38
DX: K52.9 Noninfective gastroenteritis and colitis, unspecified (principal)
CPT/HCPCS: 36415; 80053; 81001; 82150; 82550; 82553; 83690; 83735; 84443; 84484; 84703; 85025; J7030

== ENCOUNTER 2019-10-13 17:11 | Emergency (ER) | payer OTHER ==
[2019-10-13] MEDS ORDERED: SODIUM CHLORIDE 0.9% (FLUSH) 10 ML SYG IV PRN (17:20)
--- NOTE | 2019-10-13 17:20 | ED.PDOC ---
History of Present Illness - General Chief Complaint: Chest Pain/AL Time Seen by Provider: 10/13/19 17:19 Source: patient - History of Present Illness Initial Comments: 24-year-old female with past medical history of anemia, chronic smoker who presents with chief complaint of chest pain. Sudden onset about 30 minutes ago while at work while standing, located in the center of her chest without radiation, constant, sharp/stabbing, 6/10 severity, no known exacerbating factors, no medications tried for relief. Reports some mild associated dyspnea. Denies any fevers, chills, cough, sore throat, abdominal pain, nausea/vomiting, urinary symptoms, leg swelling. Reports history of similar chest pains in the past. Also reports history of palpitations in the past, for which she has seen cardiology outpatient. She reports that she was told that she has "thickening of the wall of her left ventricle." Denies any history of AL or other cardiac issues. She does not take any daily medications. She is a daily smoker. She i s currently on her menstrual period. Allergies/Adverse Reactions: Allergies Coconut Fragrance Allergy (Verified 08/30/19 18:37) Iron Allergy (Verified 08/30/19 18:37) Amoxicillin Adverse Reaction (Verified 08/30/19 18:37) Penicillins Adverse Reaction (Verified 08/30/19 18:37) Home Medications: Ambulatory Orders Famotidine 20 mg PO DAILY #30 tab 09/22/19 Ondansetron Odt [Zofran ODT] 4 mg PO Q8HR PRN #10 tab 09/22/19 Sucralfate Tab [Carafate Tab] 1 gm PO QID #120 tab 09/22/19 Review of Systems - Review of Systems Review of Systems: 10/13/19 17:52 as per HPI All other Systems: Reviewed and Negative Past Medical History (General) - Patient Medical History Hx Seizures: No Hx Stroke: No Hx Dementia: No Hx Asthma: No Hx of COPD: No 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 Hx Congestive Heart Failure: No Hx Pacemaker: No Hx Hypertension: No Hx Thyroid Disease: No Hx Diabetes: No Hx Gastroesophageal Reflux: No - steven fundiplication Hx Renal Disease: No Hx Cancer: No Hx of HIV: No Hx Hepatitis C: No Hx MRSA: No - Vaccination History Hx Tetanus, Diphtheria Vaccination: No Hx Influenza Vaccination: No Hx Pneumococcal Vaccination: No - Social History Hx Tobacco Use: Yes Hx Alcohol Use: No Hx Substance Use: No Hx Substance Use Treatment: No Hx Depression: No - Female History Patient : No - Denies Family Medical History - Family History Mother Family History: No Known Living Status: Still Living Hx Family Diabetes: Yes Father Living Status: Still Living Hx Family Diabetes: Yes Physical Exam - Physical Exam General Appearance: Alert, Comfortable, No apparent distress Eye Exam: bilateral normal Ears, Nose, Throat: normal ENT inspection Neck: full range of motion, supple, normal inspection Respiratory: chest non-tender, lungs clear, normal breath sounds, no respiratory distress, no accessory muscle use Cardiovascular/Chest: normal peripheral pulses, no edema, no gallop, no JVD, no murmur, tachycardia Peripheral Pulses: radial,right: 2+, radial,left: 2+ Gastrointestinal/Abdominal: non tender, soft, no organomegaly Back Exam: normal inspection, no CVA tenderness, no vertebral tenderness Extremity: normal range of motion, non-tender, normal inspection, no pedal edema, no calf tenderness, normal capillary refill 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 Consider also PE, ACS, pneumonia, URI, drug abuse, other -pt with mild tachycardia but vitals otherwise stable -obtain cardiac work-up, d-dimer, CXR -place PIV, 1 L NS bolus 10/13/19 18:23 -Patient remained stable, reports chest pain is improving but not fully gone following IV fluids. Her initial EKG is unremarkable. Initial blood work is also pretty unremarkable including troponin level. CBC reveals mild anemia which appears at baseline per patient. Chest x-ray shows no acute processes. -Will give Toradol 30 mg IV and Zofran 4 mg IV for pain. Plan to repeat EKG and troponin level in the ED and likely discharge to home with close outpatient follow-up. 10/13/19 19:23 -Repeat EKG unchanged, repeat trop negative. Pt remains stable, pain much improved. -Discussed diagnosis of musculoskeletal chest wall pain. Advised continued hydration and [id number] anti-inflammatories as well as smoking cessation. Follow-up with primary care physician in 1 to 2 weeks recommended. Discharge to home in good condition, return warnings discussed at length. Gilson Lira MD Billing #[id number] 10/13/19 17:20 IV Care:Saline Lock per Protoc QSHIFT Telemetry .ONCE Sodium Chloride 0.9% (Flush) [Saline Flush Syringe] 10 ml IV PRN PRN EKG Stat Pulse Ox Stat 10/13/19 17:21 Pulse Oximetry Assessment DAILY 10/13/19 18:50 EKG Assessment ONCE 10/13/19 19:00 EKG STAT Laboratory Results - last 24 hr 10/13/19 10/13/19 10/13/19 17:33 17:33 17:33 WBC 9.9 RBC 4.87 Hgb 10.5 L Hct 33.1 L MCV 68.0 L MCH 21.5 L MCHC 31.6 L RDW 18.4 H Plt Count 274 MPV 9.1 Absolute Neuts (auto) 6.40 Absolute Lymphs (auto) 2.50 Absolute Monos (auto) 0.50 Absolute Eos (auto) 0.40 Absolute Basos (auto) 0.10 Neutrophils % 64.5 Lymphocytes % 25.6 Monocytes % 4.9 Eosinophils % 4.4 Basophils % 0.6 D-Dimer, Quantitative Sodium 138 Potassium 3.5 L Chloride 104 Carbon Dioxide 24 Anion Gap 13.5 BUN 9 Creatinine 0.67 BUN/Creatinine Ratio 13.4 Random Glucose 89 Serum Osmolality 273.8 L Calcium 9.5 Troponin I < 0.02 Serum HCG, Qual Urine Color Urine Appearance Urine pH Ur Specific [place] Urine Protein Urine Glucose (UA) Urine Ketones Urine Blood Urine Nitrite Urine Bilirubin Urine Urobilinogen Ur Leukocyte Esterase Urine RBC Urine WBC Ur Epithelial Cells Urine Bacteria Urine Mucus 10/13/19 10/13/19 10/13/19 17:33 17:49 18:14 WBC RBC Hgb Hct MCV MCH MCHC RDW Plt Count MPV Absolute Neuts (auto) Absolute Lymphs (auto) Absolute Monos (auto) Absolute Eos (auto) Absolute Basos (auto) Neutrophils % Lymphocytes % Monocytes % Eosinophils % Basophils % D-Dimer, Quantitative 337.0 Sodium Potassium Chloride Carbon Dioxide Anion Gap BUN Creatinine BUN/Creatinine Ratio Random Glucose Serum Osmolality Calcium Troponin I Serum HCG, Qual Negative Urine Color Yellow Urine Appearance Clear Urine pH 6.5 Ur Specific [place] 1.025 Urine Protein Negative Urine Glucose (UA) Negative Urine Ketones Negative Urine Blood Large H Urine Nitrite Negative Urine Bilirubin Negative Urine Urobilinogen 0.2 Ur Leukocyte Esterase Negative Urine RBC >50 H Urine WBC 1-3 Ur Epithelial Cells 5-10 Urine Bacteria Rare Urine Mucus Moderate 10/13/19 18:56 WBC RBC Hgb Hct MCV MCH MCHC RDW Plt Count MPV Absolute Neuts (auto) Absolute Lymphs (auto) Absolute Monos (auto) Absolute Eos (auto) Absolute Basos (auto) Neutrophils % Lymphocytes % Monocytes % Eosinophils % Basophils % D-Dimer, Quantitative Sodium Potassium Chloride Carbon Dioxide Anion Gap BUN Creatinine BUN/Creatinine Ratio Random Glucose Serum Osmolality Calcium Troponin I < 0.02 Serum HCG, Qual Urine Color Urine Appearance Urine pH Ur Specific [place] Urine Protein Urine Glucose (UA) Urine Ketones Urine Blood Urine Nitrite Urine Bilirubin Urine Urobilinogen Ur Leukocyte Esterase Urine RBC Urine WBC Ur Epithelial Cells Urine Bacteria Urine Mucus - EKG/XRAY/CT EKG: Sinus - NSR, HR 95, no ST elevs or q waves noted, axis normal, intervals normal, appears unchanged from 03/12/2019 EKG XRAY: chest - No acute processes per my read Departure - Departure Clinical Impression: Musculoskeletal chest pain Time of Disposition: 19:25 Disposition: Discharge to Home or Self Care Condition: Good Departure Forms: ED Discharge - Pt. Copy, Patient Portal Self Enrollment Instructions: DI for Chest Pain, Chest Pain That Is Not Caused by the Heart (DC) Diet: resume usual diet Activity: increase activity as tolerated Home Medications: Ambulatory Orders Famotidine 20 mg PO DAILY #30 tab 09/22/19 Ondansetron Odt [Zofran ODT] 4 mg PO Q8HR PRN #10 tab 09/22/19 Sucralfate Tab [Carafate Tab] 1 gm PO QID #120 tab 09/22/19 Additional Instructions: Remain well-hydrated and gradually advance her diet and activity level as tolerated. You may continue take [id number] medications as needed for pain such as ibuprofen 600 mg every 6 hours as needed and Tylenol 650 mg every 6 hours as needed. Return to the ED if you develop any concerning symptoms such as worsening or different chest pain, shortness of breath, fevers, chills, abdominal pain, etc. Follow-up with your primary care physician he recommended in the next 1 to 2 weeks for repeat evaluation or sooner as needed.
[2019-10-13] MEDS ORDERED: SODIUM CHLORIDE 0.9% 1000ML 1,000 ML IVS ONE (17:21)
[2019-10-13 17:36] VITALS: TEMP 96.5
--- NOTE | 2019-10-13 17:46 | RAD ---
EXAM: XR Chest, 1 View CLINICAL HISTORY: The patient is 24 years old and is Female; chest pain TECHNIQUE: Single upright portable view of the chest. COMPARISON: September 06, 2019. FINDINGS: Lungs: Hyperinflation. Pleural space: Unremarkable. No pneumothorax. Heart: Unremarkable. No cardiomegaly. Mediastinum: Unremarkable. Bones/joints: The visualized bones and joints are unremarkable. No acute fracture visualized. Upper abdomen: No free air in the visualized upper abdomen. IMPRESSION: Hyperinflation. Electronically signed by: Bridget Rivas MD 10/13/2019 5:44 PM CDT
[2019-10-13] MEDS ORDERED: ONDANSETRON INJ 4 MG/2 ML VIAL IV ONE (18:23)
[2019-10-13] MEDS ORDERED: KETOROLAC TROMETHAMINE INJ 30 MG/ML VIAL IV ONE (18:23)
[2019-10-13 19:34] VITALS: BP 116/68; O2SAT 99
== END 2019-10-13 19:49 | disposition home or self-care (01) ==
LOC: ER 17:11
DX: R07.89 Other chest pain (principal); R06.00 Dyspnea, unspecified; F17.200 Nicotine dependence, unspecified, uncomplicated
CPT/HCPCS: 36415; 71045; 80048; 81001; 84484; 84703; 85025; 85379; 93005; 94760; A4216; J1885; J2405; J7030

== ENCOUNTER → 2019-11-07 | Outpatient (CLI) | payer OTHER | LOC: LAB.O 11:33 | PROVIDERS: ATTEND Family Medicine | DX: Z01.818 Encounter for other preprocedural examination (principal); I51.7 Cardiomegaly ==

== ENCOUNTER 2019-12-12 10:38 | Emergency (ER) | payer OTHER ==
--- NOTE | 2019-12-12 10:49 | ED.PDOC ---
History of Present Illness - General Stated Complaint: pop sensation after choley sx Time Seen by Provider: 12/12/19 10:39 Information Source: patient, RN notes reviewed, Vital Signs reviewed Exam Limitations: no limitations - History of Present Illness Initial Comments: 24 yo 3 weeks out of cholecystectomy in [place]. Was at work when she asked a co-worker to "pop" her back. She immediatley felt a pop sensation in her abdomen and had abdominal pain so came in for evaluation. no n/v/d. no recent fever. no dizziness, chest pain, shortness of breath. Abdominal Pain Onset Location: RUQ Pain Radiation: no radiation Quality: moderate Timing/Duration: 1/2 hour Improving Factors: nothing Worsening Factors: rest Associated Symptoms: denies symptoms Review of Systems - Review of Systems Constitutional: Denies: chills, fever EENTM: Denies: blurred vision, double vision Respiratory: Denies: cough, short of breath Cardiology: Denies: chest pain, palpitations Gastrointestinal/Abdominal: States: see HPI Genitourinary: Denies: dysuria, frequency, hematuria Musculoskeletal: Denies: back pain, muscle pain Skin: Denies: rash Neurological: Denies: headache, numbness, tingling Endocrine: Denies: increased urine, unexplained weight gain, unexplained weight loss Hematologic/Lymphatic: Denies: easy bleeding, easy bruising Past Medical History (General) - Patient Medical History Hx Seizures: No Hx Stroke: No Hx Dementia: No Hx Asthma: No Hx of COPD: No 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 Hx Congestive Heart Failure: No Hx Pacemaker: No Hx Hypertension: No Hx Thyroid Disease: No Hx Diabetes: No Hx Gastroesophageal Reflux: No - steven fundiplication Hx Renal Disease: No Hx Cancer: No Hx of HIV: No Hx Hepatitis C: No Hx MRSA: No - Vaccination History Hx Tetanus, Diphtheria Vaccination: No Hx Influenza Vaccination: No Hx Pneumococcal Vaccination: No - Social History Hx Tobacco Use: Yes Hx Alcohol Use: No Hx Substance Use: No Hx Substance Use Treatment: No Hx Depression: No - Female History Patient : No - Denies Family Medical History - Family History Mother Family History: No Known Living Status: Still Living Hx Family Diabetes: Yes Father Living Status: Still Living Hx Family Diabetes: Yes Physical Exam - Physical Exam General Appearance: Alert, Comfortable, No apparent distress, Well Developed, Well Groomed, Well Hydrated, Well Nourished Eyes, Ears, Nose, Throat Exam: PERRL/EOMI, normal ENT inspection, TMs normal Neck: non-tender, full range of motion, supple, normal inspection Respiratory: chest non-tender, lungs clear, normal breath sounds, no respiratory distress, no accessory muscle use Cardiovascular/Chest: normal peripheral pulses, regular rate, rhythm, no edema, no gallop, no JVD, no murmur Peripheral Pulses: 2+ Gastrointestinal/Abdominal: normal bowel sounds, non tender, soft, no organomegaly, no pulsatile mass, other - no rebound or gaurding, negative pena, negative pain at [place] Rectal Exam: deferred Back Exam: normal inspection, no CVA tenderness, no vertebral tenderness Extremity: normal range of motion, non-tender, normal inspection, no pedal edema , no calf tenderness, normal capillary refill 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 She declines anything for pain at this time. 12/12/19 12:[address] shows: 1. Findings of the descending colon may represent mild/early infectious or inflammatory colitis. No fluid collection or free air. 2. Right ovary: 1.5 cm benign appearing ovarian cyst which may represent hemorrhagic cyst. No free fluid. No follow-up imaging is recommended. 3. Cholecystectomy. No fluid collection or inflammation in the gallbladder fossa. - Results/Orders Results/Orders: Anemia - at baseline, chronic. 12/12/19 10:46 Abdomen/Pelvis w/Contrast [CT] Stat 12/12/19 10:47 Hold Metformin x 48Hrs [id number] Laboratory Results WBC 6.4 K/mm3 (4.8-10.8) 12/12/19 10:56 RBC 4.72 M/mm3 (4.20-5.40) 12/12/19 10:56 Hgb 10.1 gm/dL (12.0-16.0) L 12/12/19 10:56 Hct 32.0 % (36.0-47.0) L 12/12/19 10:56 MCV 67.8 fl (81.0-99.0) L 12/12/19 10:56 MCH 21.4 pg (27.0-31.0) L 12/12/19 10:56 MCHC 31.5 g/dL (33.0-37.0) L 12/12/19 10:56 RDW 19.0 % (11.5-14.5) H 12/12/19 10:56 Plt Count 280 K/mm3 (130-400) 12/12/19 10:56 MPV 8.6 fl (7.40-10.4) 12/12/19 10:56 Absolute Neuts (auto) 3.60 K/uL (1.8-6.8) 12/12/19 10:56 Absolute Lymphs (auto) 2.00 K/uL (1.0-3.4) 12/12/19 10:56 Absolute Monos (auto) 0.30 K/uL (0.2-0.8) 12/12/19 10:56 Absolute Eos (auto) 0.30 K/uL (0.0-0.4) 12/12/19 10:56 Absolute Basos (auto) 0.10 K/uL (0.0-0.1) 12/12/19 10:56 Neutrophils % 55.8 % (42.0-78.0) 12/12/19 10:56 Lymphocytes % 32.1 % (20.0-50.0) 12/12/19 10:56 Monocytes % 5.3 % (2.0-9.0) 12/12/19 10:56 Eosinophils % 5.4 % (1.0-5.0) H 12/12/19 10:56 Basophils % 1.4 % (0.0-2.0) 12/12/19 10:56 Normal RBC Morphology 2+hypochromia 2+microcytosis 1+aniso 1+ovalocytes Plts lisset adequate Stain quality accept 12/12/19 10:56 Normal RBC Morphology 2+hypochromia 2+microcytosis 1+aniso 1+ovalocytes Plts lisset adequate Stain quality accept 12/12/19 10:56 Normal RBC Morphology 2+hypochromia 2+microcytosis 1+aniso 1+ovalocytes Plts lisset adequate Stain quality accept 12/12/19 10:56 Normal RBC Morphology 2+hypochromia 2+microcytosis 1+aniso 1+ovalocytes Plts lisset adequate Stain quality accept 12/12/19 10:56 Normal RBC Morphology 2+hypochromia 2+microcytosis 1+aniso 1+ovalocytes Plts lisset adequate Stain quality accept 12/12/19 10:56 Normal RBC Morphology 2+hypochromia 2+microcytosis 1+aniso 1+ovalocytes Plts lisset adequate Stain quality accept 12/12/19 10:56 Sodium 136 mmol/L (135-145) 12/12/19 10:56 Potassium 3.8 mmol/L (3.6-5.0) 12/12/19 10:56 Chloride 102 mmol/L (101-111) 12/12/19 10:56 Carbon Dioxide 23 mmol/L (21-31) 12/12/19 10:56 Anion Gap 14.8 (12-18) 12/12/19 10:56 BUN 9 mg/dL (7-18) 12/12/19 10:56 Creatinine 0.50 mg/dL (0.6-1.3) L 12/12/19 10:56 BUN/Creatinine Ratio 18.0 (10-20) 12/12/19 10:56 Random Glucose 92 mg/dL (70-105) 12/12/19 10:56 Serum Osmolality 270.3 mOsm/L (275-295) L 12/12/19 10:56 Calcium 9.2 mg/dL (8.4-10.2) 12/12/19 10:56 Total Bilirubin 0.5 mg/dL (0.2-1.0) 12/12/19 10:56 AST 23 IU/L (10-42) 12/12/19 10:56 ALT 20 IU/L (10-60) 12/12/19 10:56 Alkaline Phosphatase 73 IU/L (42-121) 12/12/19 10:56 Serum Total Protein 8.0 gm/dL (6.4-8.2) 12/12/19 10:56 Albumin 4.3 g/dl (3.2-5.5) 12/12/19 10:56 Globulin 3.7 gm/dL (2.3-3.5) H 12/12/19 10:56 Albumin/Globulin Ratio 1.2 (1.1-1.9) 12/12/19 10:56 Urine Color Yellow (Yellow) 12/12/19 11:21 Urine Appearance Clear (Clear) 12/12/19 11:21 Urine pH 6.0 (4.5-7.8) 12/12/19 11:21 Ur Specific [place] 1.010 (1.005-1.030) 12/12/19 11:21 Urine Protein Negative mg/dL 12/12/19 11:21 Urine Glucose (UA) Negative mg/dL (Negative) 12/12/19 11:21 Urine Ketones Negative mg/dL (NEGATIVE) 12/12/19 11:21 Urine Blood Negative (Negative) 12/12/19 11:21 Urine Nitrite Negative 12/12/19 11:21 Urine Bilirubin Negative (NEGATIVE) 12/12/19 11:21 Urine Urobilinogen 0.2 mg/dL (0.2-1.0) 12/12/19 11:21 Ur Leukocyte Esterase Negative (Negative) 12/12/19 11:21 Urine RBC 0-1 /hpf 12/12/19 11:21 Urine WBC 1-3 /hpf 12/12/19 11:21 Ur Epithelial Cells 3-5 /hpf 12/12/19 11:21 Urine Bacteria Rare 12/12/19 11:21 Urine HCG, Qual Negative (NEGATIVE) 12/12/19 11:19 Departure - Departure Clinical Impression: Abdominal pain Qualifiers: Abdominal location: right lower quadrant Qualified Code(s): R10.31 - Right lower quadrant pain ICD-10 Supporting Text: COlitis Time of Disposition: 12:49 Disposition: Discharge to Home or Self Care Instructions: Acute Abdomen (Belly Pain), Adult (DC), Colitis Referrals: Joanne Villeda MD [Primary Care Provider] - 1-5 Days Home Medications: Ambulatory Orders Famotidine 20 mg PO DAILY #30 tab 09/22/19 Ondansetron Odt [Zofran ODT] 4 mg PO Q8HR PRN #10 tab 09/22/19 Sucralfate Tab [Carafate Tab] 1 gm PO QID #120 tab 09/22/19
[2019-12-12 12:41] VITALS: BP 120/77
--- NOTE | 2019-12-12 12:43 | CT ---
EXAM DESCRIPTION: Abdomen/Pelvis w/Contrast CLINICAL HISTORY: 24 years Female, abd pain post op COMPARISON: None. TECHNIQUE: CT of the abdomen and pelvis acquired with IV contrast material. Coronal and sagittal reformations provided. This exam was performed according to our departmental dose-optimization program, which includes automated exposure control, adjustment of the mA and/or kV according to patient size and/or use of iterative reconstruction technique. FINDINGS: Lung bases: Clear. Solid Organs: Normal appearing liver, spleen, pancreas, adrenal glands, and kidneys. Gallbladder surgically absent without biliary duct dilatation. No renal or ureteral stone. GI tract: Unremarkable stomach. No small bowel obstruction. Mild mucosal thickening of the descending colon but without appreciable pericolonic inflammation or fluid collection. Moderate stool in the descending colon. Normal appendix. Vascular: Normal. Musculoskeletal and soft tissues: No acute fracture or aggressive appearing osseous lesion. Tiny umbilical fat-containing hernia. Urinary bladder: Moderately distended. Uterus and adnexa: Fluid within the endometrial canal of a retroflexed uterus. Hyperdense right adnexal cyst with average Hounsfield unit of 30 measures 15 mm and probably represents a hyperdense right ovarian cyst. Other: No free fluid. No free air. IMPRESSION: 1. Findings of the descending colon may represent mild/early infectious or inflammatory colitis. No fluid collection or free air. 2. Right ovary: 1.5 cm benign appearing ovarian cyst which may represent hemorrhagic cyst. No free fluid. No follow-up imaging is recommended. Reference: J Am Maldonado Radiol 2013;10:675-681 3. Cholecystectomy. No fluid collection or inflammation in the gallbladder fossa. Electronically signed by: Bean Estrada MD 12/12/2019 12:41 PM CDT
[2019-12-12 13:13] VITALS: TEMP 98.1; O2SAT 96
== END 2019-12-12 13:05 | disposition home or self-care (01) ==
LOC: ER 10:38
DX: R10.31 Right lower quadrant pain (principal); Z90.49 Acquired absence of other specified parts of digestive tract; N83.201 Unspecified ovarian cyst, right side; Z87.891 Personal history of nicotine dependence

== ENCOUNTER 2020-01-04 21:25 | Emergency (ER) | payer OTHER ==
[2020-01-04] MEDS ORDERED: methylPREDNISolone SODIUM SUC 125 MG/2 ML VIAL IV ONE (21:31)
[2020-01-04] MEDS ORDERED: EPINEPHrine HCL AMP 1 MG/ML AMP SUBCU ONE (21:31)
[2020-01-04] MEDS ORDERED: EPINEPHrine HCL AMP 1 MG/ML AMP ONE (21:32)
[2020-01-04] MEDS ORDERED: diphenhydrAMINE HCL 50 MG/ML VIAL IV ONE (21:32)
[2020-01-04] MEDS ORDERED: CETIRIZINE HCL 10 MG TAB PO ONE (22:27)
[2020-01-04] MEDS ORDERED: predniSONE 20 MG TAB PO ONE (22:27)
--- NOTE | 2020-01-04 22:31 | ED.PDOC ---
History of Present Illness - General Chief Complaint: Allergic Reaction Stated Complaint: SOB and throat sweling after ant bites Time Seen by Provider: 01/04/20 21:31 Source: patient Exam Limitations: no limitations - History of Present Illness Initial Comments: The patient is a 24-year-old female presents emergency room secondary to what appears to be a start of anaphylaxis. The patient was stung approximately 5 or 6 times by ants about 30 minutes prior to arrival. She is starting to have some shortness of breath and mild audible wheezes. Additionally she is now hoarse. The patient is flushed. No nausea or vomiting. No chest pain. She is oxygenating well. Only mild increased work of breathing at this point. No altered mental status. She is developing hives surrounding the bites. No obvious swelling of the tongue or posterior oropharynx. Timing/Duration: 1/2 hour Severity: severe Improving Factors: nothing Worsening Factors: nothing Associated Symptoms: cough, malaise, shortness of breath - Mild Allergies/Adverse Reactions: Allergies Coconut Fragrance Allergy (Verified 12/12/19 10:56) Iron Allergy (Verified 12/12/19 10:56) Amoxicillin Adverse Reaction (Verified 12/12/19 10:56) Penicillins Adverse Reaction (Verified 12/12/19 10:56) Home Medications: Ambulatory Orders Famotidine 20 mg PO DAILY #30 tab 09/22/19 Ondansetron Odt [Zofran ODT] 4 mg PO Q8HR PRN #10 tab 09/22/19 Sucralfate Tab [Carafate Tab] 1 gm PO QID #120 tab 09/22/19 Epinephrine [Epipen 2-River] 0.3 mg IJ ONCE #1 pack 01/04/20 predniSONE [Prednisone] 20 mg PO DAILY #4 tab 01/04/20 Review of Systems - Review of Systems Constitutional: States: see HPI EENTM: States: nose congestion - Hoarseness Respiratory: States: cough, short of breath - Mild, wheezing - Mild Cardiology: States: no symptoms reported Gastrointestinal/Abdominal: States: no symptoms reported Genitourinary: States: no symptoms reported Musculoskeletal: States: no symptoms reported Skin: States: see HPI Neurological: States: no symptoms reported Endocrine: States: no symptoms reported All other Systems: No Change from Baseline Past Medical History (General) - Patient Medical History Hx Seizures: No Hx Stroke: No Hx Dementia: No Hx Asthma: No Hx of COPD: No 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 Hx Congestive Heart Failure: No Hx Pacemaker: No Hx Hypertension: No Hx Thyroid Disease: No Hx Diabetes: No Hx Gastroesophageal Reflux: No - steven fundiplication Hx Renal Disease: No Hx Cancer: No Hx of HIV: No Hx Hepatitis C: No Hx MRSA: No Surgical History: cholecystectomy - Vaccination History Hx Tetanus, Diphtheria Vaccination: Yes Hx Influenza Vaccination: No Hx Pneumococcal Vaccination: No Immunizations Up to Date: Yes - Social History Hx Tobacco Use: Yes Hx Chewing Tobacco Use: No Hx Alcohol Use: No Hx Substance Use: No Hx Substance Use Treatment: No Hx Depression: No Feels Threatened In Home Enviroment: No Feels Threatened In a Relationship: No Hx Physical Abuse: No Hx Emotional Abuse: No Hx Suspected Abuse: No - Activities of Daily Living Hospice Agency (if applicable):: None - Female History Patient is a Female of Child Bearing Age (10 -59 yrs old): Yes Patient : No Family Medical History - Family History Mother Family History: No Known Living Status: Still Living Hx Family Diabetes: Yes Father Living Status: Still Living Hx Family Diabetes: Yes Physical Exam - Physical Exam General Appearance: Alert, Anxious Eye Exam: bilateral normal Ears, Nose, Throat: hearing grossly normal, normal pharynx Neck: full range of motion, supple, other - The patient is hoarse Respiratory: no respiratory distress, no accessory muscle use, wheezing Cardiovascular/Chest: normal peripheral pulses, regular rate, rhythm, no edema Peripheral Pulses: radial,right: 2+, radial,left: 2+ Gastrointestinal/Abdominal: non tender, soft Rectal Exam: deferred Back Exam: no CVA tenderness, no vertebral tenderness Extremity: non-tender, normal inspection, no pedal edema, normal capillary refill 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 The patient did receive a dose of epinephrine along with a dose of Benadryl and Solu-Medrol. This was followed by longer acting prednisone and Zyrtec. The patient will be written for prednisone for daily use for the next 4 days. She should also take 1 Zyrtec at night for the next week or so. She will be written for EpiPen's to keep with her in case of future need. The patient has responded well to treatment above. Patient will be di scharged home. hernanmamie burks [id number] Departure - Departure Clinical Impression: Insect bites Qualifiers: Encounter type: initial encounter Site of insect bite: forearm Laterality: right Qualified Code(s): S50.861A - Insect bite (nonvenomous) of right forearm, initial encounter; W57.XXXA - Bitten or stung by nonvenomous insect and other nonvenomous arthropods, initial encounter Anaphylaxis Qualifiers: Encounter type: initial encounter Qualified Code(s): T78.2XXA - Anaphylactic shock, unspecified, initial encounter Disposition: Discharge to Home or Self Care Condition: Fair Departure Forms: ED Discharge - Pt. Copy, Patient Portal Self Enrollment Instructions: DI for Allergic Rhinitis, Anaphylaxis (DC) Diet: regular diet Activity: increase activity as tolerated Referrals: Joanne Villeda MD [Primary Care Provider] - 1-2 Weeks Prescriptions: Epinephrine [Epipen 2-River] 0.3 mg IJ ONCE #1 pack predniSONE [Prednisone] 20 mg PO DAILY #4 tab Home Medications: Ambulatory Orders Famotidine 20 mg PO DAILY #30 tab 09/22/19 Ondansetron Odt [Zofran ODT] 4 mg PO Q8HR PRN #10 tab 09/22/19 Sucralfate Tab [Carafate Tab] 1 gm PO QID #120 tab 09/22/19 Epinephrine [Epipen 2-River] 0.3 mg IJ ONCE #1 pack 01/04/20 predniSONE [Prednisone] 20 mg PO DAILY #4 tab 01/04/20 Additional Instructions: The patient is a 24-year-old female presenting with early anaphylaxis after multiple ant bites. The patient did receive a dose of epinephrine along with a dose of Benadryl and Solu-Medrol. This was followed by longer acting prednisone and Zyrtec. The patient will be written for prednisone for daily use for the next 4 days. She should also take 1 Zyrtec at night for the next week or so. She will be written for EpiPen's to keep with her in case of future need. The patient has responded well to treatment above. Patient will be discharged home.
[2020-01-04] MEDS ORDERED: MONTELUKAST 10 MG TAB ONE (22:34)
[2020-01-04 22:44] VITALS: O2SAT 99
[2020-01-04 22:56] VITALS: BP 105/64; TEMP 97.2
[2020-01-05] MEDS ORDERED: MONTELUKAST 10 MG TAB PO ONE (22:27)
== END 2020-01-04 22:56 | disposition home or self-care (01) ==
LOC: ER 21:25
DX: T63.421A Toxic effect of venom of ants, accidental (unintentional), initial encounter (principal); T78.2XXA Anaphylactic shock, unspecified, initial encounter; Z87.891 Personal history of nicotine dependence; Z88.8 Allergy status to other drugs, medicaments and biological substances; Z88.0 Allergy status to penicillin; Z79.899 Other long term (current) drug therapy; Y92.9 Unspecified place or not applicable
CPT/HCPCS: J1200; J2930; J7512

== ENCOUNTER 2020-01-17 12:08 | Emergency (ER) | payer OTHER ==
--- NOTE | 2020-01-17 12:25 | ED.PDOC ---
History of Present Illness - General Chief Complaint: Lower Extremity Injury Stated Complaint: left ankle pain Time Seen by Provider: 01/17/20 12:22 Source: patient - History of Present Illness Initial Comments: 24F with no significant past medical history presents with complaint of left ankle injury. States that she has a nita at work and she accidentally hit it with her foot. Complains of pain just superior and medial to the lateral malleolus. no weakness, numbness, tingling. no complaints of other injury. Occurred: just prior to arrival Method of Injury: direct blow Worsening Factors: nothing Allergies/Adverse Reactions: Allergies Coconut Fragrance Allergy (Verified 12/12/19 10:56) Iron Allergy (Verified 12/12/19 10:56) Amoxicillin Adverse Reaction (Verified 12/12/19 10:56) Penicillins Adverse Reaction (Verified 12/12/19 10:56) Home Medications: Ambulatory Orders NK 01/17/20 Review of Systems - Review of Systems Constitutional: States: no symptoms reported Musculoskeletal: States: joint pain, joint swelling, muscle pain Skin: Denies: lesions Neurological: Denies: numbness, tingling All other Systems: Reviewed and Negative Past Medical History (General) - Patient Medical History Hx Seizures: No Hx Stroke: No Hx Dementia: No Hx Asthma: No Hx of COPD: No 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 Hx Congestive Heart Failure: No Hx Pacemaker: No Hx Hypertension: No Hx Thyroid Disease: No Hx Diabetes: No Hx Gastroesophageal Reflux: No - steven fundiplication Hx Renal Disease: No Hx Cancer: No Hx of HIV: No Hx Hepatitis C: No Hx MRSA: No - Vaccination History Hx Tetanus, Diphtheria Vaccination: Yes Hx Influenza Vaccination: No Hx Pneumococcal Vaccination: No - Social History Hx Tobacco Use: Yes Hx Chewing Tobacco Use: No Hx Alcohol Use: No Hx Substance Use: No Hx Substance Use Treatment: No Hx Depression: No Hx Physical Abuse: No Hx Emotional Abuse: No Hx Suspected Abuse: No - Female History Patient : No Family Medical History - Family History Mother Family History: No Known Living Status: Still Living Hx Family Diabetes: Yes Father Living Status: Still Living Hx Family Diabetes: Yes Physical Exam - Physical Exam General Appearance: Alert, Comfortable Leg: normal inspection, normal ROM, soft tissue tenderness - midfoot, other - no point bony tenderness over malleoli, 2+ DP/PT pulses, normal ROM Progress - Progress Progress: 01/17/20 12:46 Patient with left ankle pain after contusion. Neurovascular exam is normal. There is no bony point tenderness. No evidence for acute bony injury. Will continue outpatient symptomatic management with rest, ice, compression. Tylenol/motrin as needed for pain. She will follow up with her PCP. Home care instructions and return indications reviewed - EKG/XRAY/CT XRAY: ankle - no acute bony injury Departure - Departure Clinical Impression: Ankle contusion Qualifiers: Encounter type: initial encounter Laterality: left Qualified Code(s): S90.02XA - Contusion of left ankle, initial encounter Time of Disposition: 12:48 Disposition: Discharge to Home or Self Care Condition: Excellent Departure Forms: ED Discharge - Pt. Copy, Patient Portal Self Enrollment Instructions: DI for Leg Pain, Contusion (DC), Ankle Sprain (DC) Diet: resume usual diet Activity: increase activity as tolerated Referrals: IRWIN CASSIDY [employer]NAG[employer]N [Primary Care Provider] - 1-2 Weeks Home Medications: Ambulatory Orders NK 01/17/20
[2020-01-17 12:32] VITALS: BP 125/82; TEMP 97.9; O2SAT 98
--- NOTE | 2020-01-17 12:40 | RAD ---
EXAM: XR Left Ankle, 3 Views CLINICAL HISTORY: ankle injury TECHNIQUE: Frontal, lateral and oblique views of the left ankle. COMPARISON: No relevant prior studies available. FINDINGS: Limitations: None. Bones/joints: No acute fracture or osseous destruction. Normal alignment. Soft tissues: No abnormality noted. IMPRESSION: No abnormality noted. Electronically signed by: Adina Paulino MD 01/17/2020 12:39 PM TICKET COUNTER
== END 2020-01-17 12:56 | disposition home or self-care (01) ==
LOC: ER 12:08
DX: S90.02XA Contusion of left ankle, initial encounter (principal); Z88.8 Allergy status to other drugs, medicaments and biological substances; Z88.0 Allergy status to penicillin; W22.8XXA Striking against or struck by other objects, initial encounter; Y99.0 Civilian activity done for income or pay; Y92.9 Unspecified place or not applicable

== ENCOUNTER 2020-02-11 07:17 | Emergency (ER) | payer OTHER ==
[2020-02-11] MEDS ORDERED: KETOROLAC TROMETHAMINE INJ 30 MG/ML VIAL IV ONE (07:36)
--- NOTE | 2020-02-11 07:41 | ED.PDOC ---
History of Present Illness - General Chief Complaint: Abdominal Pain Stated Complaint: left lower abdominal pain Time Seen by Provider: 02/11/20 07:30 Information Source: patient - History of Present Illness Initial Comments: PATIENT PRESENTS W/ PROGRESSIVELY WORSENING DIFFUSE LOWER ABDOMINAL PAIN X 12 HOURS. NO ASSOCIATED SYMPTOMS, DENIES N/V/F. SHE HAS HAD CHRONIC INTERMITTENT DIARRHEA X SEVERAL MONTHS SINCE A CHOLECYSTECTOMY, SHE HAS HAD DYSMENORRHEA FOR THE LAST SEVERAL MONTHS, HAD BTL 1 YEAR AGO WELL. Abdominal Pain Onset Location: RLQ, LLQ, suprapubic Pain Radiation: no radiation Quality: severe Improving Factors: nothing Worsening Factors: nothing Associated Symptoms: denies symptoms Review of Systems - Review of Systems Constitutional: States: no symptoms reported EENTM: States: no symptoms reported Respiratory: States: no symptoms reported Cardiology: States: no symptoms reported Gastrointestinal/Abdominal: States: no symptoms reported Genitourinary: States: no symptoms reported Musculoskeletal: States: no symptoms reported Skin: States: no symptoms reported Neurological: States: no symptoms reported Endocrine: States: no symptoms reported Hematologic/Lymphatic: States: no symptoms reported Past Medical History (General) - Patient Medical History Hx Seizures: No Hx Stroke: No Hx Dementia: No Hx Asthma: No Hx of COPD: No 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 Hx Congestive Heart Failure: No Hx Pacemaker: No Hx Hypertension: No Hx Thyroid Disease: No Hx Diabetes: No Hx Gastroesophageal Reflux: No - steven fundiplication Hx Renal Disease: No Hx Cancer: No Hx of HIV: No Hx Hepatitis C: No Hx MRSA: No - Vaccination History Hx Tetanus, Diphtheria Vaccination: Yes Hx Influenza Vaccination: No Hx Pneumococcal Vaccination: No - Social History Hx Tobacco Use: Yes Hx Chewing Tobacco Use: No Hx Alcohol Use: No Hx Substance Use: No Hx Substance Use Treatment: No Hx Depression: No Hx Physical Abuse: No Hx Emotional Abuse: No Hx Suspected Abuse: No - Female History Patient : No Family Medical History - Family History Mother Family History: No Known Living Status: Still Living Hx Family Diabetes: Yes Father Living Status: Still Living Hx Family Diabetes: Yes Physical Exam - Physical Exam General Appearance: Alert, Comfortable, Well Developed, Well Groomed, Well Hydrated, Well Nourished Eyes, Ears, Nose, Throat Exam: PERRL/EOMI, TMs normal Neck: non-tender, supple, normal inspection Respiratory: chest non-tender, lungs clear, normal breath sounds, no respiratory distress Cardiovascular/Chest: normal peripheral pulses, regular rate, rhythm, no edema, no gallop, no JVD Peripheral Pulses: 2+ Gastrointestinal/Abdominal: normal bowel sounds, soft, no organomegaly, no pulsatile mass, tenderness - SEES PRIMARILY SUPRAPUBIC AND SOMEWHAT TO THE LEFT Progress - Progress Progress: 02/11/20 09:49 PELVIC VENOUS CONGESTION SYNDROME POSSIBLE PER USG, DIFFICULT DX OF EXCLUSION THAT MAY OR MAY NOT BE ASSOCIATED TO HER SYMPTOMS. MUST BE SORTED BY GYNECOLOGY. Departure - Departure Clinical Impression: Pelvic pain ICD-10 Supporting Text: STRONGLY RECOMMEND FOLLOW UP WITH A MEDIA ACCOUNT EXECUTIVE. IT IS LIKELY YOUR WILL NEED ONGOING TREATMENT FOR YOUR PELVIC PAIN AT LEAST FOR A WHILE. FURTHER DIAGNOSTIC TESTING MAY FURTHER HELP DETERMINE APPROPRIATE TREATMENT. Time of Disposition: 09:44 Disposition: Discharge to Home or Self Care Condition: Fair Departure Forms: ED Discharge - Pt. Copy, Patient Portal Self Enrollment Instructions: DI for Abdominal Pain-Adult, Chronic Pelvic Pain (DC) Referrals: [facility] [employer] [facility] MACHINE SET UP OPERATOR [Primary Care Provider] - 1-2 Weeks Prescriptions: Diclofenac Potassium 50 mg PO TID PRN #30 tab PRN Reason: PELVIC PAIN Home Medications: Ambulatory Orders Diclofenac Potassium 50 mg PO TID PRN #30 tab 02/11/20 Additional Instructions: STRONGLY RECOMMEND GYNECOLOGY FOLLOW UP, FURTHER DIAGNOSTIC TESTING MAY BE HELPFUL TO DETERMINE OPTIMAL TREATMENT OPTIONS.
[2020-02-11 09:02] VITALS: TEMP 97.9
--- NOTE | 2020-02-11 09:04 | RAD ---
EXAM: Chest,2 Views INDICATION: 24 years Female, abd pain COMPARISON: Single view of the chest 10/13/2019 FINDINGS: Two views of the chest were performed. Heart size is within normal limits. No pulmonary infiltrate or pleural effusion. No pneumothorax. The osseous structures are intact. Unremarkable appearance of the visualized upper abdomen. IMPRESSION: No evidence for acute cardiopulmonary process. Electronically signed by: Florina Streeter MD 02/11/2020 9:02 AM [facility]
--- NOTE | 2020-02-11 09:31 | CT ---
EXAM: Abdomen/Pelvis w/Contrast CLINICAL HISTORY: low abd pain COMPARISON STUDY: CT abdomen and pelvis from December 12, 2019 TECHNICAL: Post IV contrast images were performed through the abdomen and pelvis. Sagittal and coronal reconstructions were obtained. FINDINGS: The visible portion of the chest is negative. The heart is not enlarged. The liver, spleen, pancreas, adrenal glands, and kidneys enhance appropriately and demonstrate no acute abnormality. The gallbladder is absent and there is no evidence of biliary dilatation. There is no bowel obstruction or free air. There is no acute inflammatory process. The appendix is visible and normal. The aorta, IVC and retroperitoneum are negative. Structures within the pelvis are negative. At 3.8 cm left ovarian follicle or small cyst is noted. The venous structures of the pelvis are prominent bilaterally. No adenopathy or free fluid. The visible osseous structures are negative. IMPRESSION: 1. Dilated bilateral pelvic veins can be seen with pelvic venous congestion syndrome. 2. 3.8 cm left ovarian follicle or small cyst requires no further imaging evaluation. 3. The remainder the examination is negative. This exam was performed according to our departmental dose-optimization program, which includes automated exposure control, adjustment of the mA and/or kV according to patient size and/or use of iterative reconstruction technique. Electronically signed by: Jesse Ray MD 02/11/2020 9:29 AM [employer] [facility]
[2020-02-11 10:19] VITALS: BP 107/71; O2SAT 96
== END 2020-02-11 10:15 | disposition home or self-care (01) ==
LOC: ER 07:17
DX: R10.2 Pelvic and perineal pain (principal); R10.32 Left lower quadrant pain; N93.8 Other specified abnormal uterine and vaginal bleeding; R19.7 Diarrhea, unspecified; Z87.891 Personal history of nicotine dependence; Z90.49 Acquired absence of other specified parts of digestive tract; Z98.51 Tubal ligation status
CPT/HCPCS: 36415; 71046; 74177; 80053; 81001; 83690; 84703; 85025; J1885